=== PATIENT | female | born 1995 | race American Indian/Alaskan Native ===

== ENCOUNTER 2017-09-08 13:37 | Emergency (ER) | payer BC ==
[2017-09-08 13:49] VITALS: BP 133/79
--- NOTE | 2017-09-08 17:30 | XRay Report ---
FINAL REPORT PROCEDURE: Right shoulder. TECHNIQUE: Three views. HISTORY: Shoulder pain. COMPARISON: No prior studies are available for comparison. FINDINGS: The bones appear intact without fracture or dislocation. The joint spaces appear normal. The soft tissues are unremarkable. IMPRESSION: Normal study.
[2017-09-08] MEDS ORDERED: MOTRIN PO ONE (18:22)
--- NOTE | 2017-09-08 18:36 | Emergency Department Report ---
Upper Extremity - [facility] Chief Complaint: Shoulder Injury Stated Complaint: RIGHT ARM INJURY Time Seen by Provider: 09/08/17 18:21 Upper Extremity: Left Shoulder Occurred When: 1 Day Mechanism: Fall Severity: moderate Symptoms: Yes Pain with Movement, Yes Limited Range of Movement, No Deformity, No Numbness, No Weakness ED Review of Systems ROS: Stated complaint: RIGHT ARM INJURY Other details as noted in HPI ED Past Medical Hx - Past Medical History Previous Medical History?: No - Surgical History Past Surgical History?: No - Social History Smoking Status: Never Smoker Substance Use Type: Alcohol, Marijuana - Medications Home Medications: Home Medications Medication Instructions Recorded Confirmed Last Taken Type Acetaminophen/Codeine [Tylenol 1 tab PO Q6H PRN #12 tab 09/08/17 Unknown Rx /Codeine # 3 tab] Ibuprofen 800 mg PO Q8H #15 tablet 09/08/17 Unknown Rx Upper Extremity Exam - Exam General: Vital signs noted. No distress. Alert and acting appropriately. Head and Torso: No HEENT Abnormality, No Neck Tenderness, No Chest/Lungs Abnormality, No Abdominal Tenderness, No Back Tenderness Shoulder Exam: Yes Shoulder Tenderness, Yes Clavicle Tenderness, No Normal Range of Motion in Shoulder (pain with movement, not able to abduction not able to rise arm anterior or posterior, Neer's test Neers and cane tests positive supination pronation is intact ), No Shoulder Deformity, No AC Joint Tenderness Arm Exam: Yes Arm/Humerus Tenderness, No Arm Deformity Elbow: Yes Normal Range of Motion in Elbow, No Elbow Tenderness, No Elbow Deformity Forearm: Yes Pain with Pronation (but able to perform), Yes Pain with Supination (but able to perform), No Forearm Tenderness, No Forearm Deformity Wrist: No Wrist Tenderness, No Normal ROM in Wrist, No Wrist Deformity, No Snuffbox Tenderness, No Pain with Axial Thumb Compression Hand: No Hand Tenderness CMS Exam: Yes Normal Distal Pulses, No Broken Skin ED Course Vital Signs 09/08/17 13:45 Temperature 98.1 F Pulse Rate 86 Blood Pressure 133/79 O2 Sat by Pulse 98 Oximetry ED Medical Decision Making - Medical Decision Making Patient has been evaluated by this provider [place]. Patient had a shoulder x- ray which showed that there was no dislocation no fracture. Discussed the patient findings that I recommended a MRI done by orthopedics. Discussed the patient was given pain medication and have her follow up with Dr. Yuen the orthopod patient verbalized understanding. Patient is to continue wearing her sling. Critical care attestation.: If time is entered above; I have spent that time in minutes in the direct care of this critically ill patient, excluding procedure time. ED Disposition Clinical Impression: Shoulder injury Qualifiers: Encounter type: initial encounter Laterality: left Qualified Code(s): S49.92XA - Unspecified injury of left shoulder and upper arm, initial encounter Disposition: TO HOME OR SELFCARE Is pt being admited?: No Does the pt Need Aspirin: No Condition: Stable Instructions: Shoulder Sprain (ED) Additional Instructions: Please follow up with orthopedist as it is important to have a MRI to rule out rotator cuff injury. Please take pain medication responsibility to not drive or operate heavy machinery while on this medication. Prescriptions: Acetaminophen/Codeine [Tylenol /Codeine # 3 tab] 1 tab PO Q6H PRN #12 tab PRN Reason: Pain Ibuprofen 800 mg PO Q8H #15 tablet Referrals: PRIMARY CAREMD [Primary Care Provider] - 3-5 Days FELICIA YUEN MD [Staff Physician] - 3-5 Days Forms: Work/School Release Form(ED), Accompanied Note
== END 2017-09-08 18:47 | disposition home or self-care (01) ==
LOC: ED 13:37
DX: S49.82XA Other specified injuries of left shoulder and upper arm, initial encounter (principal); F12.10 Cannabis abuse, uncomplicated; W17.89XA Other fall from one level to another, initial encounter; Y93.89 Activity, other specified; Y92.89 Other specified places as the place of occurrence of the external cause; Y99.8 Other external cause status
CPT/HCPCS: 81025; 99284